=== PATIENT | female | born 1950 | race Caucasian/White ===

== ENCOUNTER 2017-08-01 07:00 | Day surgery (SDC) | payer MEDICAID ==
[~2017-08-01] VITALS: Ht 160 cm; Wt 81.6 kg
[2017-08-01] MEDS ORDERED: LISI5TAB18 PO (08:03)
[2017-08-01] MEDS ORDERED: ATOR40TA40 PO (08:03)
[2017-08-01] MEDS ORDERED: fentaNYL 0.05 MG/ML VIAL ONE (09:15)
[2017-08-01] MEDS ORDERED: LIDOCAINE 2% 100 MG/5 ML UJET TP ONE (09:16)
[2017-08-01] MEDS ORDERED: MIDAZOLAM 2 MG/2 ML VIAL ONE (09:16)
[2017-08-01] MEDS ORDERED: MIDAZOLAM 2 MG/2 ML VIAL IVP ONE (11:00)
[2017-08-01] MEDS ORDERED: fentaNYL 0.05 MG/ML VIAL IVP ONE (11:00)
== END 2017-08-01 10:51 | disposition home or self-care (01) ==
LOC: MDS 07:00 → MMU 07:07 → MDS 10:51
PROVIDERS: ATTEND Internal Medicine Gastroenterology
DX: Z12.11 Encounter for screening for malignant neoplasm of colon (principal); D12.0 Benign neoplasm of cecum; D12.3 Benign neoplasm of transverse colon; D12.4 Benign neoplasm of descending colon; K57.30 Diverticulosis of large intestine without perforation or abscess without bleeding; K64.8 Other hemorrhoids; K29.70 Gastritis, unspecified, without bleeding; R13.10 Dysphagia, unspecified; I10 Essential (primary) hypertension; E78.00 Pure hypercholesterolemia, unspecified; E11.9 Type 2 diabetes mellitus without complications; E66.9 Obesity, unspecified; Z90.721 Acquired absence of ovaries, unilateral; Z79.84 Long term (current) use of oral hypoglycemic drugs; Z79.899 Other long term (current) drug therapy; Z98.890 Other specified postprocedural states; Z68.32 Body mass index [BMI] 32.0-32.9, adult
CPT/HCPCS: 36415; 43239; 45385; 86677; J2250; J3010; J7030